=== PATIENT | male | born 1975 | race Caucasian/White ===

== ENCOUNTER 2025-08-03 13:03 | Outpatient (CLI) | payer OTHER, SELFPAY ==
--- OUTSIDE RECORDS SUMMARY | 2019-10-22 03:05 | XMS_ITS | Continuity of Care Document ---
Author Organization [facility] Address [address] [facility] [address] [place] [phone] Phone Care Team Providers Care Automation Controls Engineer Name Role Phone Felipe Medel MD Unavailable Unavailable Allergies, Adverse Reactions, Alerts Substance Reaction Status Criticality No Known Allergies Active No Inform ation Medications Medication Instructions Dosage Effective Dates (start - stop) Status Comments Naprosyn 500 mg tablet take 1 tablet by oral route 2 times every day with food 500 MG - Active ASPIRIN (unknown strength) take 1 tablet by oral route every day Not Available - Active Procedures Procedure Date RADEX SPI THRC 2 VIEWS OFFICE/OUTPATIENT VISIT NEW OFFICE/OUTPATIENT VISIT NEW Advance Directives Directive Yes / No Effective Date File Name No Information Encounters Encounter Description Practice Location Reason(s) For Visit Diagnoses Date Provider Providers Copied on Encounter [facility], [address] [facility] [address], [address], [place] tel:[phone] [facility] No Information 9 Lizy Wang. [address] [facility] [place] [place], [place], [id number] . tel: [phone] OFFICE/OUTPAT IENT VISIT NEW [facility], [address] [facility] [address], [address], [place] tel:[phone] [facility] I slipped on the ice and hurt my back (chief complaint) Body mass index (BMI) 25.0-25.9, adultPain in thoracic spine 9 Lizy Wang. [address] [facility] [place], [id number] . tel: [phone] OFFICE/OUTPAT IENT VISIT [facility], [address], [place], [address], tel:[phone] [facility] Body mass index (BMI) 25.0-25.9, adultSprain of medial collateral ligament of right knee, initial encounter 8 Jossue Marsh. [address] [place], [place], [id number] . tel: [phone] Family History Family Member Type Diagnosis Age At Onset Mother Problem (finding) Alive and well Father Problem (finding) Alive and well Payers Payer name Insurance type Covered constitution party ID Authoriza tion(s) No Information Social History Type Description Quantity Date Captured Comments Alcohol Use Details Unknown Caffeine Use Details Unknown Tobacco Use Status No Information Smoking Status No Information Sex Male Chief Complaint And Reason For Visit No Information Reason For Referral Reason For Referral No Information Plan Of Treatment Date Type Action Status Referral Ordered: RADEX SPI THRC 2 VIEWS ordered Referral Ordered: RADEX KNE COMPL 4/MORE VIEWS RT ordered History Of Present Illness Encounter Date Complaint History Of Prese nt Illness I slipped on the ice and hurt my back Functional Status Date Functional Assessmen t No Information Instructions Date Instruction Additional Infor mation At this time, I feel the patient would benefit from a course of non-operative management. I will start the patient on Naprosyn 500mg p.o. b.i.d. for the next three weeks. I will also start the patient in physical therapy to work on range of motion and strengthening of the thoracic spine and modalities as seen fit by the physical therapist. I discussed with the patient the importance of continuing home therapy once formal therapy has ended. I would like to see the patient again in six weeks. All the patient's questions were answered. Related to Pain in thoracic spine Dietary needs education Related to Body mass index (BMI) 25.0-25.9, adult Take medication as directed. Rel ated to Pain in thoracic spine Continue home exercise program. Related to Pain in thoracic spine Discussed treatment options Rela ronak to Pain in thoracic spine Apply ice as tolerated. Related to Sprain of medial collateral ligament of right knee, initial encounter Weight monitoring Related to Bod y mass index (BMI) 25.0-25.9, adult Assessments Type Assessment Date No Information Patient Care Teams Name Effective Dates (start - stop) Status Members No Information
--- NOTE | ~2025-08-03 | XR_ITS ---
Examination: [id number] Clinical History: Fall/PAIN TO LOWER LATERAL AND POST RIBS Comparison: None Technique: AP chest, 4 views right ribs Findings: Heart size normal. Lungs clear. No acute bony abnormality. IMPRESSION: 1. No acute cardiopulmonary findings given portable technique. 2. No displaced rib fractures noted. Reviewed, dictated and finalized at location R.
--- OUTSIDE RECORDS SUMMARY | 2025-08-03 13:24 | XMS_ITS | Clinical Summary ---
Author Organization [facility] Address [address] [place] [address] Care Team Providers Care Senior Linux Systems Administrator Name Role Phone Zulema Encarnacion NP Primary Care Provider [phone] Allergies No known active allergies Medications multivitamin capsule Take 1 capsule by mouth daily Active traZODone (DESYREL) 50 mg tabletIndication s:Primary insomnia Take 1 tablet (50 mg total) by mouth nightly as needed for sleep 90 tablet 3 5 08/11/20 25 Active hydrocortisone butyrate (LOCOID) 0.1 % creamIndications :Eczema, unspecified type Apply topically 2 (two) times a day Apply to affected skin BID 45 g 1 5 Active azithromycin (ZITHROMAX) 250 mg tablet Take 2 tabs (500 mg) by mouth today, than 1 tab (250 mg) daily for 4 days. 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 Exercise on a regular basis. Repeat lab work prior to 6 month visit Gastroesophageal reflux dise ase with esophagitis without hemorrhage 04/17/2024 Overview (04/17/2024): Start omeprazole 20 mg daily as needed for reflux. Epigastric tenderness present Chronic right shoulder pain 07/25/2022 Encounter for vaccination 01/16/2022 BMI 28.0-28.9,adult 06/14/2021 Elevated cholesterol 12/13/2020 Primary insomnia 11/16/2020 Encounters Date Type Department Care Team Description 08/03/2025 Orders Only [address] [place] [address] Zulema Encarnacion NP Fall, initial encounter (Primary Dx) 08/02/2025 Nurse Triage [place] [address] [facility] [address] [place] [address] Chapis Prieto RN from Last 3 Months Immunizations Immunization Administration Dates Next Due Influenza, Unspecified 11/04/2024(Deferr ed: Patient Refused),11/04/2023(Deferred: Patient Refused),11/04/2023(Deferred: Patient Refused),06/05/2023(Deferred: Patient Refused),06/05/2023(Deferred: Patient Refused),11/04/2022(Deferred: Patient Refused),12/05/2021(Deferred: Patient Refused),12/05/2021(Deferred: Patient Refused) Bit9 (J&J) SARS-CoV-2 Vaccination 01/20/2021 Tdap 12/30/2024,03/24/2014 Family History Medical History Relation Name Comments No Known Problems Father No Known Problems Mother Relation Name Status Comments Father Alive Mother Alive Social History Tobacco Use Types Packs/Day Years Used Date Smoking Tobacco: Never Smokeless Tobacco: Never Tobacco Cessation:Counseling Given: Not Answered Alcohol Use Standard Drinks/Week Comments Yes 0 (1 standard drink = 0.6 oz pur e alcohol) socially AUDIT-C Answer Date Recorded Q1: How often do you have a drink containing alc ohol? 2-3 times a week 07/25/2022 Q2: How many drinks containi ng alcohol do you have on a typical day when you are drinking? 3 or 4 07/25/2022 Q3: How often do you have si x or more drinks on one occasion? 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 Gender Identity Not on file Sexual Orientation Not on file Obstetrics History Last Filed Vital Signs Vital Sign Reading Time Taken Comments Blood Pressure 126/84 12/30/2024 10:24 AM MACHINE WASHER Pulse 66 12/30/2024 10:24 AM MACHINE WASHER Temperature 36.5 C (97.7 F) 12/30/2024 10:24 AM MACHINE WASHER Respiratory Rate 20 07/25/2022 8:34 AM CDT Oxygen Saturation 97% 12/30/2024 10:24 AM MACHINE WASHER Inhaled Oxygen Concentration - - Weight 89.4 kg (197 lb) 12/30/2024 10:24 AM MACHINE WASHER Height 177.8 cm (5' 10) 12/30/2024 10:24 AM MACHINE WASHER Body Mass Index 28.27 12/30/2024 10:24 AM MACHINE WASHER Plan of Treatment Health Maintenance Due Date Last Done Comments Hepatitis C Screening 1973 Hepatitis B Screening 1991 Zoster Vaccine (1 of 2) 2023 Colon Cancer Screening-Colonoscopy 08/23/2024 08/23/2021, 08/23/2021 Covid-19 Vaccine (2 - season) 2025 01/20/2021 Influenza Vaccine (#1) 2025 Depression Screening 12/30/2025 12/30/2024, 04/17/2024, 06/05/2023, Additional history exists Regular Well Visit/Exam 18-64 12/30/2025 12/30/2024, 06/05/2023 Prostate Cancer Screening-PSA 01/06/2027 01/06/2025, 07/18/2022, 11/22/2020 DTaP/Tdap/Td Vaccine (3 - Td or Tdap) 12/30/2034 12/30/2024, 03/24/2014 Pneumococcal vaccine <65 Aged Out No longer eligible based on patient's age to complete this topic Procedures Procedure Name Priority Date/Time Associated Diagnosis Comments PSA SCREEN Routine 01/06/2025 9:59 AM MACHINE WASHER Screening for prostate cancer COLONOSCOPY Routine 08/23/2021 from Last 3 Months or Most Recently Relevant to Health Maintenance Results * PSA screen (01/06/2025 9:59 AM MACHINE WASHER) PSA 1.13 < OR = 4.00 ng/mL [facility] Comment: The total PSA value from this assay system is standardized against the WHO standard. The test result will be approximately 20% lower when compared to the equimolar-standardized total PSA (Jah Elza). Comparison of serial PSA results should be interpreted with this fact in mind. This test was performed using the Siemens chemiluminescent method. Values obtained from different assay methods cannot be used interchangeably. PSA levels, regardless of value, should not be interpreted as absolute evidence of the presence or absence of disease. Blood 01/06/2025 9:59 AM MACHINE WASHER 01/06/2025 9:59 AM MACHINE WASHER Narrative [facility] - 01/07/2025 2:46 AM MACHINE WASHER FASTING:YES FASTING: YES Zulema Encarnacion NP LAB BLOOD ORDERABLES Final Re sult [facility] [address] [place] [address] * Colonoscopy (08/23/2021) Anatomical Region Laterality Modality Other Narrative 08/23/2021 Dr. Rick Historical Provider ENDOSCOPY PROCEDURES Bekah l Result from Last 3 Months or Most Recently Relevant to Health Maintenance Insurance [facility] Care Teams Senior Linux Systems Administrator Relationship Specialty Start Date End Date Zulema Encarnacion NP PCP - General Internal Medicine 11/10/20
--- OUTSIDE RECORDS SUMMARY | 2025-08-03 13:24 | XMS_ITS | Encounter Summary ---
Author Organization [facility] Address [address] [place] [address] Care Team Providers Care Acidity Tester Name Role Phone Zulema Encarnacion NP Primary Care Provider [phone] Reason for Visit * Reason Onset Date Comments Flank Pain 08/02/2025 Encounter Details Date Type Department Care Team (Late st Contact Info) Description 08/02/2025 Nurse Triage [facility] Family Medicine [address] [place] [address] Chapis Prieto RN Social History Tobacco Use Types Packs/Day Years Used Date Smoking Tobacco: Never Smokeless Tobacco: Never Alcohol Use Standard Drinks/Week Comments Yes 0 [...] on file 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 Order placed and faxed to Filiberto. * Telephone Encounter - Sarah Mcmillan LPN - 08/03/2025 10:49 AM CDT Sent pt Feedlookst message. * Telephone Encounter - Sarah Mcmillan LPN - 08/03/2025 8:14 AM CDT Called and LVM for pt to return call. Please transfer through to office to Rayna. * Telephone Encounter - Zulema Encarnacion NP - 08/03/2025 7:15 AM CDT Right rib xrays please * Telephone Encounter - Chapis Prieto RN - 08/02/2025 11:04 AM CDT Reason for Conversation Flank Pain Background Patient reports falling 5.5 feet off ladder and hitting right side of buttocks and right flank area. Has pain with deep breath. Pain with lying down or movement. Using ice without relief. Denies blood in urine, crooked or protruding ribs, no Disposition No disposition on file. Called back line regarding patient requesting appointment on 08/04/2025. Appointment made for 1100 with Zulema Encarnacion. Patient did not want to be seen at Urgent Care or ED. Care advice given and call back instructions given regarding worsening of symptoms. Pt verbalizes understanding. -apply cold followed by heat -call from blood in urine. Reason for Disposition Protocols Used Flank [id number] FYI: patient wanting to be seen by Zulema Encarnacion NP only. Advised patient to be seen at Urgent Care for possible x-ray and declined. * Telephone Encounter - Marjan Martinez RN - 08/02/2025 10:23 AM CDT Regarding: fell - back and right side pain ----- Message from Julita Keene sent at 08/02/2025 9:38 AM CDT ----- Symptom Based Call Chief Complaint(s): fell - back and right side pain Duration: 2 days What type of symptom(s) is the patient experiencing? Red Flag. Is the patient concerned they are experiencing a medical emergency requiring an ambulance? No Additional Comments: Patient fell off a ladder on 07.31. Does message need to be routed? Yes-Action Needed documented in this encounter Plan of Treatment Not on file documented as of this encounter Visit Diagnoses Not on filedocumented in this encounter Care Teams Acidity Tester Relationship Specialty Start Date End Date Zulema Encarnacion NP PCP - General Internal Medicine 11/10/20 documented as of this encounter
--- OUTSIDE RECORDS SUMMARY | 2025-08-03 13:24 | XMS_ITS | Encounter Summary ---
Author Organization [facility] Address [address] [place] [address] Care Team Providers Care Internet Developer Name Role Phone Zulema Encarnacion NP Primary Care Provider [phone] Reason for Referral * Diagnostic Imaging (Routine) - Authorized Specialty Diagnoses / Procedures Referred By Contac t Referred To Contact Diagnoses Fall, initial encounter Procedures XR Ribs Right W PA Chest 3 or More Views Zulema Encarnacion NP [address] [place] [address] Phone: tel: fax: External Order Referral ID Status Reason Start Date Expiration Date V isits Requested Visits Authorized [id number] Authorized 08/03/2025 09/02/2026 1 1 Encounter Details Date Type Department Care Team (Late st Contact Info) Description 08/03/2025 Orders Only [facility] Family Medicine [address] [place] [address] Zulema Encarnacion NP [address] [place] [address] Fall, initial encounter (Primary Dx) Social History Tobacco Use Types Packs/Day Years [...] on file 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 Gender Identity Not on file Sexual Orientation Not on file documented as of this encounter Progress Notes * Sarah Mcmillan LPN - 08/03/2025 11:01 AM CDT Xray order placed per PCP documented in this encounter Plan of Treatment Scheduled Orders Name Type Priority Associated Diagnoses Orde r Schedule XR Ribs Right W PA Chest 3 or More Views Imaging Schedule WILLIE, Read WILLIE (Appt Today, Awaiting Results) Fall, initial encounter Expected: 08/03/2025, Expires: 08/03/2026 documented as of this encounter Visit Diagnoses Diagnosis Fall, initial encounter- Primary documented in this encounter Care Teams Internet Developer Relationship Specialty Start Date End Date Zulema Encarnacion NP PCP - General Internal Medicine 11/10/20 documented as of this encounter
--- OUTSIDE RECORDS SUMMARY | 2025-08-03 13:24 | XMS_ITS | Clinical Summary ---
Author Organization [facility] Address [address] [place] [address] Care Team Providers Care Client Success Director Name Role Phone Unavailable Primary Care Provider Unavailabl e Source Comments [facility],non-owned Affiliates and Associated Physician Practices is amultiple site organization consisting of ambulatory clinics and hospital sitesin [place], [place], [place] and [place]. This disclosure is being madepursuant to the Care Everywhere program and may not contain all information available regarding this patient. Last updated 18.[facility] Allergies No known active allergies Medications * Be aware that medications may not be up to date on this document. Alwaysverify current medications with the patient. predniSONE (DELTASONE) 50 MG tabletIndications :Insect bite, initial encounter,Celluli tis, unspecified cellulitis site Take 1 Tab by mouth once daily 7 Tab 06/24/2017 Active Active Problems No known active problems Family History Relation Name Status Comments Father Alive Mother Alive Social History Tobacco Use Types Packs/Day Years Used Date Smoking Tobacco: Never Smokeless Tobacco: Never Sex and Gender Information Value Date Recorded Sex Assigned at Not on file Legal Sex Male 10:13 AM CDT Gender Identity Not on file Sexual Orientation Not on file Last Filed Vital Signs Vital Sign Reading Time Taken Comments Blood Pressure 122/70 06/24/2017 10:32 AM CDT Pulse 58 06/24/2017 10:32 AM CDT Temperature 36.6 C (97.9 F) 06/24/2017 10:32 AM CDT Respiratory Rate 16 06/24/2017 10:32 AM CDT Oxygen Saturation 98% 06/24/2017 10:32 AM CDT Inhaled Oxygen Concentration - - Weight 81.2 kg (179 lb) 06/24/2017 10:32 AM CDT Height 177.8 cm (5' 10) 06/24/2017 10:32 AM CDT Body Mass Index 25.68 06/24/2017 10:32 AM CDT Plan of Treatment Health Maintenance Due Date Last Done Comments COLOGUARD (AGES 45-75) - COL ON CA SCREENING 1973 COLON MONITORING 1973 COLONOSCOPY - COLON CA SCREENING 1973 CT COLONOGRAPHY - COLON CA SCREENING 1973 Colorectal Cancer Screening 1973 FIT - COLON CA SCREENING 1973 FLEX SIG - COLON CA SCREENING 1973 LIPID TESTING 1973 HIV SCREENING 01/15/1988 HEPATITIS C SCREENING 01/10/1991 DTAP/TDAP/TD VACCINES (1 - Tdap) 01/15/1992 HEPATITIS B VACCINE (1 of 3 - 19+ 3-dose series) 01/15/1992 SCREENING FOR DIABETES 06/24/2017 PNEUMOCOCCAL VACCINE 50+ (1 of 1 - PCV) 2023 ZOSTER VACCINE (1 of 2) 2023 DEPRESSION SCREENING 11/04/2024 COVID-19 VACCINE (1 - 2023-2 5 season) 2025 INFLUENZA VACCINE (#1) 2025 HIB VACCINE Aged Out No longer eligi ble based on patient's age to complete this topic HPV VACCINE Aged Out No longer eligi ble based on patient's age to complete this topic MENINGOCOCCAL (Group B) VACC INE SHARED DECISION-MAKING Aged Out No longer eligibl e based on patient's age to complete this topic MENINGOCOCCAL GROUPS A/C/Y/W VACCINE Aged Out No longer eligible b ased on patient's age to complete this topic Insurance [facility]
== END 2025-08-03 13:04 | disposition home or self-care (01) ==
LOC: ANHIMG 13:10
PROVIDERS: PCP Nurse Practitioner Family; Visit Provider Nurse Practitioner Family
DX: R07.81 Pleurodynia (principal); W19.XXXA Unspecified fall, initial encounter
CPT/HCPCS: 71101